=== PATIENT | male | born 1960 | race Caucasian/White ===

== ENCOUNTER → 2017-01-12 | Outpatient (CLI) | payer OTHER | LOC: SLEEP 21:30 | DX: G47.33 Obstructive sleep apnea (adult) (pediatric) (principal) | CPT/HCPCS: 95810 ==

== ENCOUNTER 2021-01-30 05:51 | Emergency (ER) | payer OTHER ==
[2021-01-30 06:52] LABS: HEMOGLOBIN 17.2 gm/dl (14.0-17.5); RED BLOOD COUNT 5.39 M/UL (4.20-5.50); WHITE BLOOD COUNT 11.9 K/UL (4.5-11.0)
[2021-01-30 07:18] LABS: BUN/CREATININE RATIO 14 (0-10)
[2021-01-31] MEDS ORDERED: PERCOCET 5/325 T1 EA PO ×2 (05:35→05:52)
== END 2021-01-30 08:30 | disposition home or self-care (01) ==
LOC: ER1 05:51
PROVIDERS: Family Medicine
DX: M54.42 Lumbago with sciatica, left side (principal); F17.210 Nicotine dependence, cigarettes, uncomplicated
CPT/HCPCS: 72192; 80053; 85025; 96372; 99284; J1885

== ENCOUNTER 2021-01-31 01:20 | Emergency (ER) | payer OTHER ==
[2021-01-31] MEDS ORDERED: PERCOCET 5/325 T1 EA PO ×2 (05:35→05:52)
== END 2021-01-31 05:50 | disposition home or self-care (01) ==
LOC: ER1 01:20
DX: M51.36 Other intervertebral disc degeneration, lumbar region (principal); M51.37 Other intervertebral disc degeneration, lumbosacral region; Z90.49 Acquired absence of other specified parts of digestive tract; F17.200 Nicotine dependence, unspecified, uncomplicated
CPT/HCPCS: 72131; 96372; 99283; J2270; J2550